=== PATIENT | female | born 1965 | race African-American/Black ===

== ENCOUNTER 2021-06-25 10:54 | Emergency (ER) | payer SELFPAY ==
[~2021-06-25] VITALS: Ht 167.6 cm; Wt 96.0 kg
[2021-06-25] MEDS ORDERED: IBUP-2029 MT (12:56)
[2021-06-25] MEDS ORDERED: CYCL10TA7 MT (12:56)
[2021-06-25 12:58] VITALS: BP 136/89
[2021-06-25] MEDS ORDERED: CYCLOBENZAPRINE 10MG TABLET PO ONE (13:00)
[2021-06-25] MEDS ORDERED: IBUPROFEN 600MG TABLET PO ONE (13:00)
== END 2021-06-25 13:16 | disposition home or self-care (01) ==
LOC: ER 11:04
DX: M54.2 Cervicalgia (principal); M54.5 Low back pain; V49.49XA Driver injured in collision with other motor vehicles in traffic accident, initial encounter; Y93.89 Activity, other specified; Y92.89 Other specified places as the place of occurrence of the external cause; Y99.8 Other external cause status
CPT/HCPCS: 72040; 72100; 99284

== ENCOUNTER 2024-07-27 16:02 | Inpatient (IN) | payer MEDICAID ==
[~2024-07-27] VITALS: Ht 170.2 cm; Wt 63.5 kg
[~2024-07-27 16:02] MED LIST: CYCL10TA21 MT; IBUP-2029 MT
[2024-07-27] MEDS: MORPHINE SULFATE 4 MG/ML INJ (FOR IV/IM USE) IV STA ×2 (16:57→17:48)
[2024-07-27] MEDS: ONDANSETRON HCL 4MG/2ML INJ IV STA ×2 (16:57→17:48)
[2024-07-27 17:06] LABS: CALCIUM 10.6 mg/dL (8.7-10.4); CARBON DIOXIDE 20 mEq/L (21-32); CHLORIDE 114 mEq/L (98-107); SODIUM 140 mEq/L (136-145)
[2024-07-27 17:07] LABS: BASOPHILS % 1.3 % (0.0-2.0); EOSINOPHILS % 4.7 % (0.0-5.0); HEMATOCRIT. 31.4 % (36.0-48.0); LYMPHOCYTES % 39.7 % (20.0-50.0); MEAN CORPUSCULAR HEMOGLOBIN 30.2 pg (28.0-32.0); MEAN CORPUSCULAR HGB CONC 31.9 g/dL (31.0-37.0); MEAN CORPUSCULAR VOLUME 94.9 fL (81.0-99.0); MEAN PLATELET VOLUME 10.1 fl (7.4-10.4); MONOCYTES % 4.5 % (2.0-8.0); NEUTROPHILS % 49.8 % (40.0-76.0); PLATELET 194 x1000/uL (130-400); RED BLOOD CELL COUNT 3.31 mill/uL (4.2-5.4)
[2024-07-27 17:10] LABS: CREATININE 1.7 mg/dL (0.6-1.0); GLUCOSE 81 mg/dL (70-105); UREA NITROGEN BLOOD 23 mg/dL (9-23)
[2024-07-27 17:11] LABS: ALANINE AMINOTRANSFERASE 42 IU/L (10-49)
[2024-07-27 17:12] LABS: ALBUMIN 4.5 g/dL (3.2-4.8); ASPARTATE AMINOTRANSFERASE 31 IU/L (<34); BILIRUBIN TOTAL 0.3 mg/dL (0.1-1.0); PROTEIN TOTAL 6.9 g/dL (6.0-8.3)
[2024-07-27] MEDS: IOHEXOL-300 100 ML BOTTLE ONE (19:29)
[2024-07-27] MEDS ORDERED: NALOXONE HCL 0.4MG/ML VIAL IV PRN (22:00)
[2024-07-27] MEDS: MORPHINE SULFATE 2 MG/ML INJ (NOT FOR IM USE) IV NR (23:26)
[2024-07-28] VITALS (7 sets, daily range): BP systolic 99–117; BP diastolic 61–79; PULSE 61–70; RESP 16–19; TEMP 36.114–36.50292; O2SAT 98–100
[2024-07-28] MEDS: HYDROCODONE/ACETAMINOPHEN 10/325MG TABLET PO PRN (01:17)
[2024-07-28] MEDS: ZOLPIDEM TARTRATE 5MG TABLET PO PRN (01:18)
[2024-07-28 07:33] LABS: POTASSIUM 3.7 mEq/L (3.5-5.1)
[2024-07-28 07:35] LABS: CALCIUM 10.1 mg/dL (8.7-10.4)
[2024-07-28 07:39] LABS: CREATININE 1.7 mg/dL (0.6-1.0)
[2024-07-28 08:24] LABS: EOSINOPHILS % 4.9 % (0.0-5.0); HEMATOCRIT. 29.3 % (36.0-48.0); HEMOGLOBIN. 9.2 g/dL (12.0-16.0); LYMPHOCYTES % 43.8 % (20.0-50.0); MEAN CORPUSCULAR HEMOGLOBIN 30.4 pg (28.0-32.0); MEAN CORPUSCULAR HGB CONC 31.5 g/dL (31.0-37.0); MEAN CORPUSCULAR VOLUME 96.5 fL (81.0-99.0); MEAN PLATELET VOLUME 10.2 fl (7.4-10.4); MONOCYTES % 7.9 % (2.0-8.0); NEUTROPHILS % 42.4 % (40.0-76.0); PLATELET 153 x1000/uL (130-400); RED BLOOD CELL COUNT 3.04 mill/uL (4.2-5.4); RED CELL DISTRIBUTION WIDTH 13.8 % (11.6-14.6); WHITE BLOOD COUNT 4.7 x1000/uL (4.5-11.0)
[2024-07-28] MEDS: PANTOPRAZOLE 40MG DR TABLET PO SCH (08:34)
[2024-07-28] MEDS: LEVETIRACETAM 500MG TABLET PO SCH (08:34)
[2024-07-28] MEDS: MORPHINE SULFATE 2 MG/ML INJ (NOT FOR IM USE) IV NR (13:12)
[2024-07-28] MEDS: ONDANSETRON HCL 4MG/2ML INJ IV PRN (13:15)
[2024-07-28] MEDS ORDERED: MORPHINE SULFATE 2 MG/ML INJ (NOT FOR IM USE) IV SCH (13:30)
[2024-07-28] MEDS: SODIUM CHLORIDE 0.45% 1,000 ML IV SCH (14:42)
[2024-07-28 17:38] LABS: CLARITY URINE CLEAR (CLEAR); COLOR URINE YELLOW (YELLOW); GLUCOSE URINE NEGATIVE (NEGATIVE); KETONES URINE NEGATIVE (NEGATIVE); LEUKOCYTE ESTERASE URINE TRACE (NEGATIVE); NITRITE URINE NEGATIVE (NEGATIVE); OCCULT BLOOD URINE NEGATIVE (NEGATIVE); PH URINE 5.5 (4.5-8.0); PROTEIN URINE TRACE (NEGATIVE); SPECIFIC GRAVITY URINE 1.025 (1.005-1.030); UROBILINOGEN URINE 0.2 E.U./dL (0.2-1.0)
[2024-07-28 17:55] LABS: *AMPHETAMINES SCREEN URINE NEGATIVE (NEGATIVE); *BARBITURATES SCREEN URINE NEGATIVE (NEGATIVE); *BENZODIAZEPINES SCREEN URINE NEGATIVE (NEGATIVE); *COCAINE SCREEN URINE NEGATIVE (NEGATIVE); METHADONE URINE SCREEN NEGATIVE (NEGATIVE)
[2024-07-28 17:56] LABS: CANNABINOID URINE SCREEN NEGATIVE (NEGATIVE); ECSTASY MDMA SCREEN URINE NEGATIVE (NEGATIVE); OPIATES URINE SCREEN PRESUMPTIVE POSITIVE (NEGATIVE); PHENCYCLIDINE URINE SCREEN NEGATIVE (NEGATIVE)
[2024-07-28 18:00] LABS: BACTERIA URINE 1+; RBC URINE 0-2 /hpf (0-2); SQUAMOUS EPITHELIAL CELL URINE 1+ /lpf (RARE/1+); WBC URINE 0-2 /hpf (0-2)
[2024-07-29] VITALS: BP 101/64; PULSE 66; RESP 20; TEMP 36.33624; O2SAT 98
[2024-07-29] MEDS: HYDROCODONE/ACETAMINOPHEN 5/325MG TABLET PO PRN (02:28)
[2024-07-29 04:00] VITALS: BP 103/67; PULSE 68; RESP 19; TEMP 36.78072; O2SAT 99
[2024-07-29 06:26] LABS: CHLORIDE 113 mEq/L (98-107); POTASSIUM 4.2 mEq/L (3.5-5.1); SODIUM 139 mEq/L (136-145)
[2024-07-29 06:27] LABS: BASOPHILS % 0.5 % (0.0-2.0); CARBON DIOXIDE 20 mEq/L (21-32); EOSINOPHILS % 4.7 % (0.0-5.0); HEMATOCRIT. 28.4 % (36.0-48.0); LYMPHOCYTES % 48.1 % (20.0-50.0); MEAN CORPUSCULAR HEMOGLOBIN 31.1 pg (28.0-32.0); MEAN CORPUSCULAR HGB CONC 31.9 g/dL (31.0-37.0); MEAN CORPUSCULAR VOLUME 97.4 fL (81.0-99.0); MEAN PLATELET VOLUME 10.1 fl (7.4-10.4); NEUTROPHILS % 38.7 % (40.0-76.0); PLATELET 155 x1000/uL (130-400); RED BLOOD CELL COUNT 2.91 mill/uL (4.2-5.4); WHITE BLOOD COUNT 4.2 x1000/uL (4.5-11.0)
[2024-07-29 06:28] LABS: CALCIUM 9.9 mg/dL (8.7-10.4)
[2024-07-29 06:32] LABS: CREATININE 1.6 mg/dL (0.6-1.0); GLUCOSE 93 mg/dL (70-105); IRON 70 ug/dL (50-170)
[2024-07-29 06:33] LABS: UREA NITROGEN BLOOD 23 mg/dL (9-23)
[2024-07-29 06:35] LABS: TOTAL IRON BINDING CAPACITY 185 ug/dl (250-425)
[2024-07-29 06:42] LABS: FOLIC ACID (FOLATE) SERUM 8.08 ng/mL (>5.38)
[2024-07-29 06:44] LABS: FERRITIN 13 ng/mL (10-291); VITAMIN B12 SERUM 412 pg/mL (211-911)
[2024-07-29 08:00] VITALS: BP 114/82; PULSE 61; RESP 18; TEMP 36.00288; O2SAT 99
[2024-07-29 12:00] VITALS: BP 122/75; PULSE 66; RESP 19; TEMP 36.6696; O2SAT 98
[2024-07-29] MEDS: MORPHINE SULFATE 2 MG/ML INJ (NOT FOR IM USE) IV NR (15:36)
[2024-07-29 16:00] VITALS: BP 116/70; PULSE 68; RESP 19; TEMP 36.61404; O2SAT 99
[2024-07-29 20:00] VITALS: BP 114/82; PULSE 66; RESP 17; TEMP 36.72516; O2SAT 97
[2024-07-30] VITALS: BP 121/70; PULSE 73; RESP 20; TEMP 36.44736; O2SAT 98
[2024-07-30 04:00] VITALS: BP 102/71; PULSE 86; RESP 17; TEMP 36.6696; O2SAT 98
[2024-07-30 08:00] VITALS: BP 122/72; PULSE 58; RESP 18; TEMP 36.16956; O2SAT 97
[2024-07-30 12:00] VITALS: BP 102/69; PULSE 60; RESP 16; TEMP 35.50284; O2SAT 98
[2024-07-30] MEDS ORDERED: MAGNESIUM/ALUMINUM HYDROXIDE/SIMETHICONE 30ML UDC PO PRN (12:30)
[2024-07-30 16:00] VITALS: BP 110/72; PULSE 66; RESP 17; TEMP 36.16956; O2SAT 98
[2024-07-31 04:00] VITALS: BP 119/85; PULSE 50; RESP 20; TEMP 35.78064; O2SAT 99
[2024-07-31] MEDS: PANTOPRAZOLE 40MG DR TABLET PO SCH (06:26)
[2024-07-31 08:00] VITALS: BP 146/83; PULSE 58; RESP 18; TEMP 36.50292; O2SAT 99
[2024-07-31 10:22] LABS: HEMATOCRIT. 30.6 % (36.0-48.0); HEMOGLOBIN. 9.8 g/dL (12.0-16.0); MEAN CORPUSCULAR HEMOGLOBIN 30.5 pg (28.0-32.0); MEAN CORPUSCULAR HGB CONC 32.1 g/dL (31.0-37.0); MEAN PLATELET VOLUME 9.9 fl (7.4-10.4); PLATELET 164 x1000/uL (130-400); RED BLOOD CELL COUNT 3.22 mill/uL (4.2-5.4); RED CELL DISTRIBUTION WIDTH 13.9 % (11.6-14.6); WHITE BLOOD COUNT 4.1 x1000/uL (4.5-11.0)
[2024-07-31 10:30] LABS: CARBON DIOXIDE 25 mEq/L (21-32); CHLORIDE 111 mEq/L (98-107); POTASSIUM 3.7 mEq/L (3.5-5.1); SODIUM 141 mEq/L (136-145)
[2024-07-31 10:35] LABS: CREATININE 1.2 mg/dL (0.6-1.0)
[2024-07-31 10:36] LABS: GLUCOSE 89 mg/dL (70-105); UREA NITROGEN BLOOD 21 mg/dL (9-23)
[2024-07-31 10:38] LABS: PHOSPHORUS 2.8 mg/dL (2.5-4.9)
[2024-07-31 12:00] VITALS: BP 114/65; PULSE 60; RESP 17; TEMP 36.61404; O2SAT 98
[2024-07-31 13:34] VITALS: BP 146/83; PULSE 60; TEMP 97.3; O2SAT 99
== END 2024-07-31 14:46 | disposition home or self-care (01) | DRG 252 ==
LOC: ER 16:02 → EDBEDREQ 17:48 → EDBEDREQSVC 19:08 → 5WST 19:12 → 6EST 23:31
PROVIDERS: ADMIT Internal Medicine; ATTEND Internal Medicine
DX: K94.03 Colostomy malfunction (principal); N17.9 Acute kidney failure, unspecified; R16.0 Hepatomegaly, not elsewhere classified; D64.9 Anemia, unspecified; I12.9 Hypertensive chronic kidney disease with stage 1 through stage 4 chronic kidney disease, or unspecified chronic kidney disease; G40.909 Epilepsy, unspecified, not intractable, without status epilepticus; N18.9 Chronic kidney disease, unspecified; Z85.038 Personal history of other malignant neoplasm of large intestine; Y84.8 Other medical procedures as the cause of abnormal reaction of the patient, or of later complication, without mention of misadventure at the time of the procedure
CPT/HCPCS: 36415; 74177; 80048; 80053; 80305; 81003; 82607; 82728; 82746; 83540; 83550; 83735; 84100; 85025; 99285; J2270; J2405; Q9967

== ENCOUNTER 2025-04-16 17:01 | Emergency (ER) | payer MEDICAID ==
[~2025-04-16] VITALS: Ht 167.6 cm; Wt 49.0 kg
[2025-04-16 17:09] VITALS: O2SAT 100
[2025-04-16 17:25] VITALS: TEMP 36.6
[2025-04-16 17:53] LABS: BASOPHILS % 0.9 % (0.0-2.0); HEMATOCRIT. 33.4 % (36.0-48.0); HEMOGLOBIN. 10.9 g/dL (12.0-16.0); LYMPHOCYTES % 28.3 % (20.0-50.0); MEAN CORPUSCULAR HEMOGLOBIN 31.6 pg (28.0-32.0); MEAN CORPUSCULAR HGB CONC 32.8 g/dL (31.0-37.0); MEAN CORPUSCULAR VOLUME 96.3 fL (81.0-99.0); MEAN PLATELET VOLUME 9.2 fl (7.4-10.4); NEUTROPHILS % 60.8 % (40.0-76.0); PLATELET 248 x1000/uL (130-400); RED BLOOD CELL COUNT 3.47 mill/uL (4.2-5.4); RED CELL DISTRIBUTION WIDTH 14.2 % (11.6-14.6); WHITE BLOOD COUNT 5.2 x1000/uL (4.5-11.0)
[2025-04-16 17:56] LABS: CHLORIDE 109 mEq/L (98-107); POTASSIUM 3.3 mEq/L (3.5-5.1); SODIUM 140 mEq/L (136-145)
[2025-04-16 17:57] LABS: CARBON DIOXIDE 23 mEq/L (21-32)
[2025-04-16 17:58] LABS: CALCIUM 9.5 mg/dL (8.7-10.4)
[2025-04-16 18:01] LABS: PROTHROMBIN TIME 10.7 sec (9.6-11.0)
[2025-04-16 18:02] LABS: GLUCOSE 60 mg/dL (70-105); UREA NITROGEN BLOOD 32 mg/dL (9-23)
[2025-04-16 18:03] LABS: CREATININE 1.7 mg/dL (0.6-1.0)
[2025-04-16 18:04] LABS: ALANINE AMINOTRANSFERASE 22 IU/L (10-49); ASPARTATE AMINOTRANSFERASE 20 IU/L (<34); BILIRUBIN DIRECT < 0.1 mg/dL (<=3.0)
[2025-04-16 18:05] LABS: BILIRUBIN TOTAL 0.3 mg/dL (0.1-1.0); PROTEIN TOTAL 6.6 g/dL (6.0-8.3)
[2025-04-16] MEDS: MORPHINE SULFATE 4 MG/ML INJ (FOR IV/IM USE) IV STA ×2 (18:12→19:50)
[2025-04-16] MEDS: SODIUM CHLORIDE 0.9% 1,000 ML IV ONE (18:17)
[2025-04-16] MEDS: ONDANSETRON HCL 4MG/2ML INJ IV STA (18:18)
[2025-04-16] MEDS ORDERED: IOHEXOL-300 100 ML BOTTLE ONE (20:58)
[2025-04-16 21:06] VITALS: BP 164/100; PULSE 67; RESP 14; O2SAT 98
[2025-04-17] MEDS ORDERED: IOHEXOL-300 100 ML BOTTLE ONE (07:34)
== END 2025-04-16 21:25 | disposition home or self-care (01) ==
LOC: ER 17:01 → EDBEDREQ 19:27 → EDBEDREQSVC 19:27 → EDBEDREQTM 19:27 → ENRESERV 20:05 → ER 21:25
DX: R10.9 Unspecified abdominal pain (principal); Z98.890 Other specified postprocedural states; Z86.59 Personal history of other mental and behavioral disorders; Z93.3 Colostomy status
CPT/HCPCS: 80076; 80048; 83690; 85025; 85610; 36415; 74177; 96361; 96374; 96375; 96376; 99285; Q9967; J2405; J2270; J7030; Z7610 ×2